=== PATIENT | male | born 1965 | race African-American/Black ===

== ENCOUNTER 2020-08-03 18:36 | Emergency (ER) | payer SELFPAY ==
[~2020-08-03] VITALS: Ht 182.9 cm; Wt 97.8 kg
--- NOTE | 2020-08-03 19:07 | NUR ---
PT STATES HE JUST GOT OUT [facility] 2 WEEKS AGO, WHILE THERE HE HAD TROUBLE WITH FREQUENT HEMMRHOIDS. "WHEN I USED THE CREAM, IT SEEMED LIKE IT MADE IT WORSE." PT HAS PICTURES OF TOILET BOWL THAT SHOW ELIZABETH BLOODY WATER. PT STATES THAT HIS STOOL HAS BEEN SOFT, BUT TODAY HE BECAME SLIGHTLY CONSTIPATED. DENIES DIZZINESS. MUCOUS MEMBRANES IN EYES ARE PINK. PT SITTING IN [facility], WATCHING TV, CONNECTED TO BP AND O2 MONITORS.
[2020-08-03 19:37] LABS: BASOPHILS % (AUTO) 1 % (0-1); EOSINOPHILS % (AUTO) 1 % (1-7); LYMPHOCYTES % (AUTO) 35 % (22-44); MEAN CORPUSCULAR HEMOGLOBIN 30.7 pg (27.5-34.5); MEAN CORPUSCULAR HGB CONC 33.6 g/dL (33.2-36.2); MEAN PLATELET VOLUME 8.2 fL (7.4-10.4); MONOCYTES % (AUTO) 9 % (2-9); NEUTROPHILS % (AUTO) 55 % (42-75); PLATELET COUNT 258 x10^3/uL (130-400)
[2020-08-03 19:38] LABS: MD NO
[2020-08-03 19:44] LABS: ALANINE AMINOTRANSFERASE 38 U/L (12-78); ALBUMIN 3.8 g/dL (3.4-5.0); ANION GAP 3 mmol/L (5-15); CALCIUM 9.4 mg/dL (8.5-10.1); CHLORIDE 108 mmol/L (98-107)
[2020-08-03 19:46] LABS: ALKALINE PHOSPHATASE 61 U/L (45-117); BILIRUBIN,TOTAL 0.3 mg/dL (0.2-1.0); TOTAL PROTEIN 7.9 g/dL (6.4-8.2)
--- NOTE | 2020-08-03 19:58 | NUR ---
THIS RN TO BEDSIDE TO WITNESS MD MCCALLUM DO RECTAL EXAM.
[2020-08-03 20:05] VITALS: BP 126/81
== END 2020-08-03 20:26 | disposition home or self-care (01) ==
LOC: ED 18:57
DX: K64.4 Residual hemorrhoidal skin tags (principal); F17.210 Nicotine dependence, cigarettes, uncomplicated
CPT/HCPCS: 36415; 80053; 83690; 85025; 99283; 99406

== ENCOUNTER 2021-06-19 16:04 | Emergency (ER) | payer SELFPAY ==
[~2021-06-19] VITALS: Ht 182.9 cm; Wt 82.0 kg
[2021-06-19 16:15] VITALS: BP 122/73
== END 2021-06-19 16:27 | disposition home or self-care (01) ==
LOC: ED 16:20
DX: H60.501 Unspecified acute noninfective otitis externa, right ear (principal)
CPT/HCPCS: 99283